=== PATIENT | female | born 1965 | race Caucasian/White ===

== ENCOUNTER 2017-09-22 19:33 | Emergency (ER) | payer BC, OTHER ==
[~2017-09-22] VITALS: Ht 162.6 cm; Wt 97.5 kg
[~2017-09-22 19:33] MED LIST: ATENOLOL; PROTONIX; SYNTHROID; VALTREX; WELLBUTRIN XL
[2017-09-22] MEDS ORDERED: KETOROLAC TROMETHAMINE 30 MG/ML VIAL IV STA (20:03)
[2017-09-22] MEDS ORDERED: METOCLOPRAMIDE HCL 10 MG/2ML VIAL IV ONE (20:15)
[2017-09-22] MEDS ORDERED: LEVOFLOXACIN 750MG/D5W 150ML 150 ML IV STA (20:52)
[2017-09-23] MEDS ORDERED: MORPHINE SULFATE INJ 4 MG/ML INJ IV ONE
== END 2017-09-22 22:27 | disposition home or self-care (01) ==
LOC: FSED 19:33
DX: R10.9 Unspecified abdominal pain (principal); R11.2 Nausea with vomiting, unspecified; N20.1 Calculus of ureter
CPT/HCPCS: 74176; 80048; 81003; 85025; 99284; J1885; J2270; J2765

== ENCOUNTER 2021-04-28 21:39 | Emergency (ER) | payer BC ==
[~2021-04-28] VITALS: Ht 162.6 cm; Wt 108.9 kg
[2021-04-28] MEDS ORDERED: FAMOTIDINE 20 MG/2 ML VIAL IV STA (22:09)
[2021-04-28] MEDS ORDERED: ONDANSETRON HCL INJ 2MG/ML 2ML 2 MG/ML VIAL IV STA (22:10)
[2021-04-28] MEDS ORDERED: PROMETHAZINE HCL (IM) 25 MG/ML VIAL IM ONE (22:15)
[2021-04-28] MEDS ORDERED: SODIUM CHLORIDE 0.9% 1000ML 1,000 ML IV SCH (22:15)
[2021-04-28] MEDS ORDERED: PROMETHAZINE 12.5MG/ NACL 0.9% 12.5 MG/50 ML BAG IV ONE (22:15)
[2021-04-28] MEDS ORDERED: ONDANSETRON HCL INJ 2MG/ML 2ML 2 MG/ML VIAL ONE (22:15)
[2021-04-28] MEDS ORDERED: FAMOTIDINE 20 MG/2 ML VIAL IV ONE (22:16)
[2021-04-28] MEDS ORDERED: SODIUM CHLORIDE 0.9% 50ML 50 ML ONE (22:36)
[2021-04-28] MEDS ORDERED: IOPAMIDOL 370 MG/ML 200 ML INFUS..BTL INJ ONE (22:37)
[2021-04-28] MEDS ORDERED: SODIUM CHLORIDE 0.9% 1000ML 1,000 ML ONE (23:06)
[2021-04-28] MEDS ORDERED: ACETAMINOPHEN 325 MG TAB PO ONE (23:15)
[2021-04-28] MEDS ORDERED: ONDANSETRON ODT4 MG PO (23:52)
[2021-04-28] MEDS ORDERED: PROMETHAZINE HC25 M1 PO (23:56)
[2021-04-29] MEDS ORDERED: ONDANSETRON HCL INJ 2MG/ML 2ML 2 MG/ML VIAL ONE (00:21)
[2021-04-29] MEDS ORDERED: SODIUM CHLORIDE 0.9% 250ML 250 ML ONE (00:21)
== END 2021-04-29 01:03 | disposition home or self-care (01) ==
LOC: FSED 21:43
DX: R11.2 Nausea with vomiting, unspecified (principal); K52.9 Noninfective gastroenteritis and colitis, unspecified; E11.65 Type 2 diabetes mellitus with hyperglycemia; E86.0 Dehydration; I10 Essential (primary) hypertension
CPT/HCPCS: 74177; 80048; 80076; 81003; 82553; 84484; 85025; 99284; J2405 ×2; J2550; J7030; J7050; Q9967